=== PATIENT | male | born 1960 | race Caucasian/White ===

== ENCOUNTER 2023-07-05 11:13 | Outpatient (CLI) | payer BC, SELFPAY | END 2023-07-05 11:14 | disposition home or self-care (01) | PROVIDERS: PCP Family Medicine; Visit Provider Family Medicine | DX: Z00.00 Encounter for general adult medical examination without abnormal findings (principal); E78.00 Pure hypercholesterolemia, unspecified; I10 Essential (primary) hypertension; R73.03 Prediabetes; R73.01 Impaired fasting glucose; Z12.5 Encounter for screening for malignant neoplasm of prostate | CPT/HCPCS: 80053; 80061; 84153 ==

== ENCOUNTER 2024-07-15 08:18 | Outpatient (CLI) | payer BC, SELFPAY | END 2024-07-15 08:19 | disposition home or self-care (01) | LOC: NFLDREF 20:59 | PROVIDERS: PCP Family Medicine; Referring Provider Family Medicine; Visit Provider Family Medicine | DX: Z00.00 Encounter for general adult medical examination without abnormal findings (principal); R73.03 Prediabetes; I10 Essential (primary) hypertension; Z12.5 Encounter for screening for malignant neoplasm of prostate; Z13.6 Encounter for screening for cardiovascular disorders | CPT/HCPCS: 80053; 80061; G0103 ==

== ENCOUNTER 2025-08-28 08:24 | Outpatient (CLI) | payer BC, SELFPAY | END 2025-08-28 08:25 | disposition home or self-care (01) | LOC: NFLDREF 09-03 13:42 | PROVIDERS: PCP Family Medicine; Referring Provider Family Medicine; Visit Provider Family Medicine | DX: I10 Essential (primary) hypertension (principal); Z13.9 Encounter for screening, unspecified | CPT/HCPCS: 80053; 80061; G0103 ==